=== PATIENT | female | born 1965 | race Caucasian/White ===

== ENCOUNTER 2017-04-29 09:57 | Day surgery (SDC) | payer BC ==
[2017-04-29] MEDS ORDERED: Lactated Ringers 1,000 ML IV SCH ×2 (10:00→12:15)
[2017-04-29] MEDS ORDERED: Lidocaine 2% 5 ML SDV ONE (10:09)
[2017-04-29] MEDS ORDERED: Propofol 200 MG/20 ML SDV ONE (10:09)
[2017-04-29] MEDS ORDERED: Midazolam 1 MG/ML 2 ML SDV ONE (10:09)
[2017-04-29] MEDS ORDERED: fentaNYL 100 MCG/2 ML SDV ONE (10:09)
--- NOTE | 2017-04-29 11:04 | PCM.PREANE ---
Preanesthetic Assessment - Anesthesia/Transfusion/Family Hx Anesthesia History: Unknown Other Type of Anesthesia Reaction Comment: "sister has hard time waking up after anesthesia" Family History of Anesthesia Reaction: No Transfusion History: No Prior Transfusion(s) Intubation History: Unknown - Review of Systems General: No Symptoms Pulmonary: No Symptoms Cardiovascular: No Symptoms Gastrointestinal: Abdominal Pain Neurological: No Symptoms - Physical Assessment Height: 1.6 m Weight: 66.224 kg ASA Class: 2 Mental Status: Alert & Oriented x3 Airway Class: Mallampati = 2 Dentition: Reports: Normal Dentition Thyro-Mental Finger Breadths: 2 (bad gag reflex) Mouth Opening Finger Breadths: 3 ROM/Head Extension: Limited/Partial (very limited motion due to fusion) Lungs: Clear to Auscultation, Normal Respiratory Effort Cardiovascular: Regular Rate, Regular Rhythm - Lab Values: Laboratory Last Values Urine HCG, Qual NEGATIVE (NEGATIVE) 04/29/17 10:03 - Allergies Allergies/Adverse Reactions: Allergies Allergy/AdvReac Type Severity Reaction Status Date / Time adhesive tape Allergy Redness Verified 04/22/17 14:02 amoxicillin Allergy Rash Verified 01/02/17 16:27 MDT latex Allergy Rash Verified 01/02/17 16:27 MDT - Blood Blood Available: No - Anesthesia Plan Pre-Op Medication Ordered: None - Acknowledgements Anesthesia Type Planned: MAC Pt an Appropriate Candidate for the Planned Anesthesia: Yes Alternatives and Risks of Anesthesia Discussed w Pt/Guardian: Yes Pt/Guardian Understands and Agrees with Anesthesia Plan: Yes PreAnesthesia Questionnaire Cardiovascular History: Reports: Arrhythmia Respiratory History: Reports: Asthma (mild) Gastrointestinal History: Reports: Cholelithiasis, Other (See Below) Other Gastrointestinal History: occasional heartburn, CT scan revealed cholelithiasis Genitourinary History: Reports: None Musculoskeletal History: Reports: Arthritis, Back Pain, Chronic, Neck Pain, Chronic, Other (See Below) Other Musculoskeletal History: fusion C3-T1 Endocrine/Metabolic History: Reports: None - Past Surgical History Head Surgeries/Procedures: Reports: None HEENT Surgical History: Reports: Adenoidectomy, Tonsillectomy Female Surgical History: Reports: Section Neurological Surgical History: Reports: C-Spine, Lumbar Spine Other Neurological Surgeries/Procedures: neck fusion C2 or C3 to T1, back surgery Musculoskeletal Surgical History: Reports: Shoulder Surgery Other Musculoskeletal Surgeries/Procedures:: left rotator cuff repair - SUBSTANCE USE Smoking Status *Q: Never Smoker Recreational Drug Use History: No - HOME MEDS Home Medications: Home Meds Ibuprofen [Motrin] 600 mg PO Q6H PRN 01/02/17 [History] Omeprazole 40 mg PO DAILY 04/22/17 [History] Albuterol [IJD: Albuterol HFA] 1 - 2 puff INH ASDIRECTED PRN 04/23/17 [History] - CURRENT (IN HOUSE) MEDS Current Meds: Current Medications Lactated Ringer's (Ringers, Lactated) 1,000 mls @ 125 mls/hr IV ASDIRECTED ZACH Last Admin: 04/29/17 10:20 Dose: 125 mls/hr Discontinued Medications Fentanyl (Sublimaze) Confirm Administered Dose 100 mcg .ROUTE .STK-MED ONE Stop: 04/29/17 10:10 Lidocaine (Xylocaine-Mpf 2%) Confirm Administered Dose 5 ml .ROUTE .STK-MED ONE Stop: 04/29/17 10:10 Midazolam HCl (Versed 1 Mg/Ml) Confirm Administered Dose 2 mg .ROUTE .STK-MED ONE Stop: 04/29/17 10:10 Propofol (Diprivan 20 Ml) Confirm Administered Dose 400 mg .ROUTE .STK-MED ONE Stop: 04/29/17 10:10
--- NOTE | 2017-04-29 12:06 | PCM.OPNOTE ---
- General Post-Op/Procedure Note Date of Surgery/Procedure: 04/29/17 Operative Procedure(s): Esophagogastroduodenoscopy with biopsy Pre Op Diagnosis: Epigastric pain Post-Op Diagnosis: Mild chronic gastritis Anesthesia Technique: MAC (ASA II) Primary Surgeon: Chris March Mine Wirer: Renea Escobar Condition: Good Free Text/Narrative:: Dictation [id number] CPT CODE 54903
[2017-04-29 13:08] VITALS: BP 106/67
--- NOTE | 2017-04-29 21:51 | OR ---
SURGEON: Chris March M.D. DATE OF PROCEDURE: 04/29/2017 OPERATION PERFORMED: Esophagogastroduodenoscopy with biopsy. ANESTHESIA: MAC. ASA CLASSIFICATION: II. PREOPERATIVE DIAGNOSIS: Epigastric pain. POSTOPERATIVE DIAGNOSIS: Mild gastritis, no acute ulcerations. DESCRIPTION OF PROCEDURE: The patient was taken to the endoscopy room and positioned on the endoscopy table in the supine position. Time-out was called for appropriate identification of the patient and procedure. Monitored anesthesia care was provided. The bite block was placed between the patient's teeth. The gastroscope was inserted into the bite block and advanced without difficulty through the esophagus and stomach into the duodenum where examination was carried out in a retrograde fashion. The duodenum shows no acute inflammatory changes or ulcerations. The stomach does show mild gastritis. Antral biopsies were obtained to look for the presence of Helicobacter pylori. No ulcerations were noted. The gastroscope was retroflexed to visualize proximal stomach. No lesions were identified in the proximal stomach or cardia. The gastroscope was straightened and slowly withdrawn. The GE junction was well defined and shows no acute inflammatory changes or ulcerations. The esophagus demonstrated good contractility. The vocal cords were visualized as the scope was withdrawn and noted to move symmetrically. The gastroscope was then removed with the patient having tolerated the procedure well. She was taken to recovery room in stable condition. LYDIA DORSEY /[id number]
== END 2017-04-29 12:54 | disposition home or self-care (01) ==
LOC: MW.SDS 09:57
PROVIDERS: ATTEND Surgery
DX: K29.50 Unspecified chronic gastritis without bleeding (principal); M19.90 Unspecified osteoarthritis, unspecified site; J45.20 Mild intermittent asthma, uncomplicated; K80.20 Calculus of gallbladder without cholecystitis without obstruction; Z88.0 Allergy status to penicillin; Z91.040 Latex allergy status; Z91.048 Other nonmedicinal substance allergy status; Z79.899 Other long term (current) drug therapy; Z98.1 Arthrodesis status; Z90.89 Acquired absence of other organs; Z98.890 Other specified postprocedural states; Z80.0 Family history of malignant neoplasm of digestive organs
CPT/HCPCS: 43239; 81025; J2250; J3010; J7120; 00740; 88305; 88312; J2704

== ENCOUNTER 2018-01-01 13:04 | Emergency (ER) | payer BC ==
--- NOTE | 2018-01-01 13:20 | EDM.PDOC ---
ED HPI GENERAL MEDICAL PROBLEM - General Chief Complaint: Lower Extremity Injury/Pain Stated Complaint: LEFT LEG PAIN Time Seen by Provider: 01/01/18 13:11 - History of Present Illness INITIAL COMMENTS - FREE TEXT/NARRATIVE: HISTORY AND PHYSICAL: History of present illness: Patient's 52-year-old female from extensive spinal history with multiple surgeries presents with a concern of left hip pain with some radiation laterally and also some paresthesia distally of her foot she's had problems similar to this in the past but this is slightly different and she is requesting x-ray of her left hip and pelvis she does have a specialist that she' s work without nail as well as a private medical doctor she isn't interested in any other imaging or diagnostic she has had no fever chills nausea vomiting or trauma Review of systems: As per history of present illness and below otherwise all systems reviewed and negative. Past medical history: As per history of present illness and as reviewed below otherwise noncontributory. Surgical history: As per history of present illness and as reviewed below otherwise noncontributory. Social history: No reported history of drug or alcohol abuse. Family history: As per history of present illness and as reviewed below otherwise noncontributory. Physical exam: HEENT: Atraumatic, normocephalic, pupils reactive, negative for conjunctival pallor or scleral icterus, mucous membranes moist, throat clear, neck supple, nontender, trachea midline. Lungs: Clear to auscultation, breath sounds equal bilaterally, chest nontender. Heart: S1S2, regular, negative for clicks, rubs, or JVD. Abdomen: Soft, nondistended, nontender. Negative for masses or hepatosplenomegaly. Negative for costovertebral tenderness. Pelvis: Stable nontender. Genitourinary: Deferred. Rectal: Deferred. Extremities: Atraumatic, negative for cords or calf pain. Neurovascular unremarkable. Neuro: Awake, alert, oriented. Cranial nerves II through XII unremarkable. Cerebellum unremarkable. Motor and sensory unremarkable throughout. Exam nonfocal. Diagnostics: X-ray and pelvis with left hip Therapeutics: None Impression: #1 left hip pain with radiculopathy Definitive disposition and diagnosis as appropriate pending reevaluation and review of above. - Related Data Allergies Allergy/AdvReac Type Severity Reaction Status Date / Time adhesive tape Allergy Redness Verified 01/01/18 13:18 amoxicillin Allergy Rash Verified 01/01/18 13:18 latex Allergy Rash Verified 01/01/18 13:18 Home Meds: Home Meds Ibuprofen [Motrin] 600 mg PO Q6H PRN 01/02/17 [History] Omeprazole 40 mg PO DAILY 04/22/17 [History] Albuterol [IJD: Albuterol HFA] 1 - 2 puff INH ASDIRECTED PRN 04/23/17 [History] Past Medical History Cardiovascular History: Reports: Arrhythmia Respiratory History: Reports: Asthma (mild) Gastrointestinal History: Reports: Cholelithiasis, Other (See Below) Other Gastrointestinal History: occasional heartburn, CT scan revealed cholelithiasis Genitourinary History: Reports: None Musculoskeletal History: Reports: Arthritis, Back Pain, Chronic, Neck Pain, Chronic, Other (See Below) Other Musculoskeletal History: fusion C3-T1 Endocrine/Metabolic History: Reports: None - Past Surgical History Head Surgeries/Procedures: Reports: None HEENT Surgical History: Reports: Adenoidectomy, Tonsillectomy Female Surgical History: Reports: Section Neurological Surgical History: Reports: C-Spine, Lumbar Spine Other Neurological Surgeries/Procedures: neck fusion C2 or C3 to T1, back surgery Musculoskeletal Surgical History: Reports: Shoulder Surgery Other Musculoskeletal Surgeries/Procedures:: left rotator cuff repair Social & Family History - Tobacco Use Smoking Status *Q: Never Smoker - Caffeine Use Caffeine Use: Reports: Soda - Recreational Drug Use Recreational Drug Use: No Review of Systems - Review of Systems Review Of Systems: ROS reveals no pertinent complaints other than HPI. ED EXAM, GENERAL - Physical Exam Exam: See Below (dictation) Course - Orders/Labs/Meds Orders: Active Orders 24 hr Category Date Time Status Hip Min 2V or 3V Lt [CR] Stat Exams 01/01/18 13:15 Ordered Pelvis 1V or 2V [CR] Stat Exams 01/01/18 13:15 Ordered Departure - Departure Time of Disposition: 13:19 Disposition: Home, Self-Care 01 Condition: Good Clinical Impression: Hip pain, Radiculopathy - Discharge Information Referrals: PCP,None [Primary Care Provider] - Additional Instructions: The following information is given to patients seen in the emergency department who are being discharged to home. This information is to outline your options for follow-up care. We provide all patients seen in our emergency department with a follow-up referral. The need for follow-up, as well as the timing and circumstances, are variable depending upon the specifics of your emergency department visit. If you don't have a primary care physician on staff, we will provide you with a referral. We always advise you to contact your personal physician following an emergency department visit to inform them of the circumstance of the visit and for follow-up with them and/or the need for any referrals to a consulting specialist. The emergency department will also refer you to a specialist when appropriate. This referral assures that you have the opportunity for followup care with a specialist. All of these measure are taken in an effort to provide you with optimal care, which includes your followup. Under all circumstances we always encourage you to contact your private physician who remains a resource for coordinating your care. When calling for followup care, please make the office aware that this follow-up is from your recent emergency room visit. If for any reason you are refused follow-up, please contact the [facility] emergency department at and asked to speak to the emergency department charge nurse. Continue current medications follow-up with primary medical doctor as discussed return as needed as discussed - My Orders Last 24 Hours: My Active Orders 01/01/18 13:15 Hip Min 2V or 3V Lt [CR] Stat Pelvis 1V or 2V [CR] Stat - Assessment/Plan Last 24 Hours: My Active Orders 01/01/18 13:15 Hip Min 2V or 3V Lt [CR] Stat Pelvis 1V or 2V [CR] Stat
--- NOTE | 2018-01-01 13:53 | CR ---
EXAMINATION: Pelvis and left hip HISTORY: Pain COMPARISON: None TECHNIQUE: AP pelvis and 2 views of the left hip FINDINGS: There is no acute osseous abnormality, dislocation, or fracture. Bone mineralization and deanna int spaces appear normal. No focal soft tissue swelling. Hip joint spaces are preserved. SI joints ar e symmetric. The iliopectineal lines are intact. IMPRESSION: No acute osseous abnormality identified.
[2018-01-01 14:37] VITALS: BP 131/65
== END 2018-01-01 14:30 | disposition home or self-care (01) ==
LOC: MW.ED 13:04
DX: M25.552 Pain in left hip (principal); M54.10 Radiculopathy, site unspecified; Z79.899 Other long term (current) drug therapy; Z88.0 Allergy status to penicillin; Z90.49 Acquired absence of other specified parts of digestive tract
CPT/HCPCS: 73502-26-LT; 73502-LT; 99282; 99283